=== PATIENT | male | born 1930 | race Caucasian/White ===

== ENCOUNTER 2017-09-29 17:04 | Emergency (ER) | payer MEDICARE, OTHER ==
[2017-09-29 17:48] VITALS: BP 142/65
[2017-09-29] MEDS ORDERED: Gelfoam 12-7 ADSORBABL SPONGE* 1 EA SPONGE TOPICAL ONE (18:05)
--- NOTE | 2017-09-29 18:25 | UC ---
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 and he scraped the top of his head one small area keeps bleeding - History Of Current Complaint Chief Complaint: UCLaceration Stated Complaint: HEAD LACERATION Time Seen by Provider: 09/29/17 17:39 Hx Obtained From: Patient Laceration Location: Head Mechanism Of Injury: Sharp Trauma Pain Intensity: 0 - Allergies/Home Medications Allergies/Adverse Reactions: Allergies Allergy/AdvReac Type Severity Reaction Status Date / Time No Known Allergies Allergy Verified 09/29/17 17:52 Home Medications: Home Medications Aspirin 81 mg PO 09/29/17 [History] Levothyroxine TAB* [Synthroid 25 MCG TAB*] 09/29/17 [History] Metoprolol Tartrate 50 mg PO 09/29/17 [History] Simvastatin 20 mg PO 09/29/17 [History] Tamsulosin CAP* [Flomax CAP*] 09/29/17 [History] PMH/Surg Hx/FS Hx/Imm Hx Previously Healthy: No Endocrine History: Hypothyroidism, Dyslipidemia Cardiovascular History: Hypertension - Surgical History Surgical History: None - Family History Known Family History: Positive: None - Social History Occupation: Retired Lives: With Family Alcohol Use: None Substance Use Type: None Smoking Status (MU): Never Smoked Tobacco Review of Systems Constitutional: Negative Skin: Negative, Other - abrasion on top of head--one small area with continued bleeding Eyes: Negative ENT: Negative Respiratory: Negative Cardiovascular: Negative Gastrointestinal: Negative Genitourinary: Negative Motor: Negative Neurovascular: Negative Musculoskeletal: Negative Neurological: Negative Psychological: Negative Is Patient Immunocompromised?: No All Other Systems Reviewed And Are Negative: Yes Physical Exam Triage Information Reviewed: Yes Appearance: Well-Appearing, No Pain Distress, Well-Nourished Vital Signs: Initial Vital Signs Temp 99.8 F 09/29/17 17:40 Pulse 70 09/29/17 17:40 Resp 16 09/29/17 17:40 BP 142/65 09/29/17 17:40 Pulse Ox 95 09/29/17 17:40 Vital Signs Reviewed: Yes Eye Exam: Normal Eyes: Positive: Conjunctiva Clear ENT Exam: Normal ENT: Positive: Normal ENT inspection, Hearing grossly normal. Negative: Trismus , Muffled voice, Hoarse voice Dental Exam: Normal Neck exam: Normal Neck: Positive: Supple, Nontender Respiratory Exam: Normal Respiratory: Positive: Chest non-tender, No respiratory distress, No accessory muscle use Cardiovascular Exam: Normal Cardiovascular: Positive: RRR, Pulses Normal, Brisk Capillary Refill Musculoskeletal Exam: Normal Musculoskeletal: Positive: Strength Intact, ROM Intact, No Edema Neurological Exam: Normal Neurological: Positive: Alert, Muscle Tone Normal Psychological Exam: Normal Psychological: Positive: Normal Response To Family Skin Exam: Normal Skin: Positive: Other - 5 cm scabbed abrasion with mst frontal area with 1-2 mm area of arteriol bleeding--- Re-Evaluation - Re-Evaluation First Eval Change: Improved - bleeding controlled with gel form and direct pressure Laceration Course/Dx - Course/Dx Course Of Treatment: pressure wund and gel foam, change dressing prn and qd, leave gel foam in place-follow with pcp prn - Differential Dx - Laceration/Wound Provider Diagnoses: skin abrasion a top of head, hypertension in poor control Discharge - Sign-Out/Discharge Documenting (check all that apply): Patient Departure - Discharge Plan Condition: Stable Disposition: HOME Patient Education Materials: Abrasion (ED), Hypertension (ED) Referrals: No Primary Care Phys,NOPCP [Primary Care Provider] - Additional Instructions: Follow with your primary care doctor as needed-- - Billing Disposition and Condition Condition: STABLE Disposition: Home
== END 2017-09-29 18:35 | disposition home or self-care (01) ==
LOC: UCEAST 17:04
DX: S00.91XA Abrasion of unspecified part of head, initial encounter (principal); W22.8XXA Striking against or struck by other objects, initial encounter; Y93.H9 Activity, other involving exterior property and land maintenance, building and construction; Y92.096 Garden or yard of other non-institutional residence as the place of occurrence of the external cause; I10 Essential (primary) hypertension; E03.9 Hypothyroidism, unspecified; E78.5 Hyperlipidemia, unspecified; Z82.49 Family history of ischemic heart disease and other diseases of the circulatory system
CPT/HCPCS: 99202; A9270-GY; G0463